=== PATIENT | female | born 1950 | race Two or more races ===

== ENCOUNTER 2020-07-14 08:06 | Day surgery (SDC) | payer OTHER ==
[~2020-07-14 08:06] MED LIST: ADALAT CC30 MG PO; COZAAR100 MG PO; HYDROCHLOROTHIA25 MG PO; SYNTHROID100 MCG PO
[2020-07-14] MEDS ORDERED: OXYC1TAB9 PO (14:03)
[2020-07-14] MEDS ORDERED: DUI500 PO (14:03)
== END 2020-07-14 17:45 | disposition home or self-care (01) ==
LOC: CIR.AMB 08:06
PROVIDERS: ATTEND Orthopaedic Surgery Sports Medicine
DX: S82.62XA Displaced fracture of lateral malleolus of left fibula, initial encounter for closed fracture (principal); Z20.828 Contact with and (suspected) exposure to other viral communicable diseases
CPT/HCPCS: 27792; C1776